=== PATIENT | female | born 1970 ===

== ENCOUNTER 2022-10-07 11:11 | Outpatient (CLI) | payer BC, SELFPAY | END 2022-10-07 11:12 | disposition home or self-care (01) | PROVIDERS: PCP Family Medicine; Visit Provider Family Medicine | DX: Z00.00 Encounter for general adult medical examination without abnormal findings (principal); I10 Essential (primary) hypertension | CPT/HCPCS: 80048; 80061; 85025 ==

== ENCOUNTER 2024-08-10 14:27 | Outpatient (CLI) | payer OTHER, SELFPAY | END 2024-08-10 14:28 | disposition home or self-care (01) | PROVIDERS: PCP Family Medicine; Visit Provider Family Medicine | DX: I10 Essential (primary) hypertension (principal); Z13.220 Encounter for screening for lipoid disorders | CPT/HCPCS: 80048; 80061; 85025 ==

== ENCOUNTER 2025-03-14 14:55 | Outpatient (CLI) | payer OTHER, SELFPAY ==
[2025-03-14 16:13] LABS: Trichomonas No Trichomonas Seen (None Seen)
== END 2025-03-14 14:56 | disposition home or self-care (01) ==
LOC: FBOREF 14:55
PROVIDERS: PCP Family Medicine; Visit Provider Family Medicine
DX: N89.8 Other specified noninflammatory disorders of vagina (principal)
CPT/HCPCS: 87086; 87210